=== PATIENT | female | born 1965 | race Caucasian/White ===

== ENCOUNTER 2022-08-16 18:09 | Emergency (ER) | payer BC, SELFPAY ==
--- NOTE | ~2022-08-16 | XR_ITS ---
EXAMINATION: XR chest 2V DATE: 08/16/2022 19:51 INDICATION: Cough TECHNIQUE: PA and lateral views of the chest are obtained. COMPARISON: None available FINDINGS: The lungs are free of acute opacities. No pleural effusion or pneumothorax. The cardiomedia stinal silhouette is normal. There is mild thoracic spondylosis. Bilateral breast implants are noted. IMPRESSION: 1. No acute cardiopulmonary abnormality. Reviewed, dictated and finalized at location F. [place] [employer]
[2022-08-16 18:16] VITALS: BP 157/97; PULSE 107; RESP 16; TEMP 36.4; O2SAT 100
--- NOTE | 2022-08-16 19:46 | ED.DENTAL ---
HPI - Dental/Oral General Chief complaint: Dental/Oral Stated complaint: dental swelling Time Seen by Provider: 08/16/22 19:31 History of Present Illness HPI Narrative: 56-year-old female reports for left upper dental pain for 2 weeks. Patient states she broke that tooth 2 months ago, however just started experiencing pain 2 weeks ago. Reports she is concerned she has an infection or abscess. Patient states she has not been evaluated by dentist because she just switched insurance and her dentist left his practice. She is also complaining of a cough for the past 2 weeks with shortness of breath, congestion and L sinus pressure. Denies fever, body aches, chills, difficulty swallowing, difficulty opening or closing her mouth, chest pain, rash, facial swelling. Related Data Allergies Allergy/AdvReac Type Severity Reaction Status Date / Time codeine Allergy Mild Nausea and Verified 08/16/22 19:00 Vomiting Review of Systems Review of Systems: CONSTITUTIONAL: Denies fever, chills EYES: Denies visual changes, redness, or discharge. ENT: See HPI CARDIOVASCULAR: Denies chest pain, palpitations, or edema. RESPIRATORY: See HPI. GASTROINTESTINAL: Denies abdominal pain, nausea, vomiting, or diarrhea. GENITOURINARY: Denies dysuria or hematuria. SKIN: Denies rash or itching. MUSCULOSKELETAL: Denies back pain, joint pain, or myalgia. NEUROLOGIC: Denies headache, numbness, dizziness, or weakness. PSYCHIATRIC: Denies anxiety or depression. Exam Narrative: GENERAL: Well-appearing, well-nourished, and in no acute distress. HEAD: Normocephalic, atraumatic. EYES: PERRLA and EOMI. ENT: Nares clear, no rhinorrhea or epistaxis. Mucous membranes moist. Oropharynx without tonsillar hypertrophy exudate or other lesions. Tooth #11 fractured with gingival erythema and a small white pustule. #31 fractured. Multiple fillings throughout dentition. No palpable area of fluctuance, induration to buccal mucosa. No erythema or edema to the face. This to the left maxillary and frontal sinuses. No trismus. No necrotizing tissue to the floor of the mouth. NECK: Supple. Left submandibular lymphadenopathy. CHEST: Clear to auscultation. No respiratory distress. No wheezes rales or rhonchi HEART: Regular rate and rhythm. No murmur heard. Normal peripheral pulses. EXTREMITIES: Normal range of motion. No edema. SKIN: Warm, dry, no rash. NEURO: No focal deficits. Alert and oriented x3. PSYCH: Normal mood and affect. Course Course Emergency Course: Offered pain medications to the patient. She declined. Given patient's cough, dyspnea and heart rate of 107 upon initial intake, I discussed my concern for PE with the patient and encouraged to work-up. Patient declined. I discussed the risks of going home without evaluation for PE, including worsening condition, , disability. Patient acknowledges the risk and states she still want to go home and does not want further work-up. I offered to aspirate the patient's gingival abscess, to which she also declined. Vital Signs Vital signs: Vital Signs Temperature 97.6 F 08/16/22 18:16 Pulse Rate 107 H 08/16/22 18:16 Respiratory Rate 16 08/16/22 18:16 Blood Pressure 157/97 H 08/16/22 18:16 Pulse Oximetry 100 08/16/22 18:16 Temperature 97.6 F 08/16/22 18:16 Pulse Rate 107 H 08/16/22 18:16 Respiratory Rate 16 08/16/22 18:16 Blood Pressure 157/97 H 08/16/22 18:16 Pulse Oximetry 100 08/16/22 18:16 MDM - Dental/Oral MDM Narrative Medical decision making narrative: 56-year-old female reports for left upper dental pain overlying tooth #11 for 2 weeks. She fractured her tooth 2 months ago. Exam reveals erythematous and edematous gingiva with a small white pustule above tooth #11. No facial cellulitis, focal induration or fluctuation, trismus, concern for Ludewig's angina. Patient remains afebrile throughout ED visit. Heart rate was elevated at 107, patient also complained of cou
[2022-08-16] MEDS: BENZONATATE 100 MG CAPSULE 200 MG PO (20:05)
[2022-08-16 20:48] LABS: Influenza A QL RT-PCR Negative (Negative); Influenza B QL RT-PCR Negative (Negative); SARS-CoV-2 RNA PCR Negative
== END 2022-08-16 20:39 | disposition left against medical advice (07) ==
PROVIDERS: Emergency Provider Physician Assistant
DX: K04.7 Periapical abscess without sinus (principal); K03.81 Cracked tooth; R05.9 Cough, unspecified; Z20.822 Contact with and (suspected) exposure to COVID-19
CPT/HCPCS: 71046; 87636; 99284; A9270

== ENCOUNTER 2023-02-23 13:44 | Emergency (ER) | payer BC, SELFPAY ==
[2023-02-23 13:46] VITALS: BP 164/90; PULSE 87; RESP 20; TEMP 36.7; O2SAT 100
--- NOTE | 2023-02-23 14:38 | PC.NURSE ---
Sitter for room 15 - states she saw room 14 walk out the Ambulance doors and get into her car.
== END 2023-02-23 14:39 | disposition left against medical advice (07) ==
DX: R06.02 Shortness of breath (principal)
CPT/HCPCS: 99199

== ENCOUNTER 2024-10-15 09:34 | Emergency (ER) | payer OTHER, SELFPAY ==
[2024-10-15 09:48] VITALS: BP 151/92; PULSE 98; RESP 18; TEMP 36.6; O2SAT 100
--- NOTE | 2024-10-15 09:58 | ED.DENTAL ---
HPI - Dental/Oral General Chief complaint: Dental/Oral Stated complaint: Dental Pain/Ear Irritation Source: patient Mode of arrival: ambulatory Limitations: no limitations History of Present Illness HPI Narrative: Patient presents to [facility] for complaints of tooth pain to upper right. She recently had two teeth removed and is waiting for an appointment to have another tooth extracted. She finished a round of penicillin last week for her two teeth that were removed. Denies bitter taste in mouth, fever, chills. Related Data Allergies Allergy/AdvReac Type Severity Reaction Status Date / Time codeine Allergy Mild Nausea and Verified 10/15/24 09:37 Vomiting Review of Systems Review of Systems: CONSTITUTIONAL: Denies body aches, fever, chills, or sweats. EYES: Denies visual changes, redness, or discharge. ENT: Denies rhinorrhea, congestion, sore throat, or otalgia. Reports dental pain to #7. CARDIOVASCULAR: Denies chest pain, palpitations, or edema. RESPIRATORY: Denies cough or dyspnea. SKIN: Denies rash, itching, or wounds. NEUROLOGIC: Denies headache, numbness, tingling, or weakness. PSYCH: Denies depression or anxiety. All systems reviewed & are unremarkable except as noted in HPI and below PMFSH Past Medical History Medical History (Updated 10/15/24 @ 10:54 by Nayely Hernandez APRN) Hyperlipidemia H/O trichomoniasis Diabetes Depression Hypertension Eczema Psoriasis Anxiety ADHD (attention deficit hyperactivity disorder) Neck injury Broken collarbone (~1970) Fractured nose Arthritis Surgical History Surgical History (Updated 08/06/23 @ 13:14 by ANGELIQUE Decker) S/P nasal surgery (~1979) nose surgery broken x 3 H/O breast implant (~1993) H/O colonoscopy (03/29/14) polyp / Benign History of colposcopy (06/29/15) benign Family History Family History (Updated 08/06/23 @ 13:17 by ANGELIQUE Decker) Father Hypertension Bone cancer Mother Carcinoma of colon Muscular dystrophy Grandparent Carcinoma of colon maternal grandmother Sibling Brain cancer sister Malignant lymphoma sister Other Breast cancer maternal aunt Comments At time of signature, I have reviewed and agree with nursing past medical, surgical, social and family history unless otherwise noted. Please see nursing chart for further information. There is no relevant family history pertinent to the presenting complaint. Exam Narrative: GENERAL: Well-appearing, well-nourished, and in no acute distress. HEAD: Normocephalic, atraumatic. EYES: EOMI. No redness or drainage. Conjunctivae normal. ENT: Mucous membranes pink and moist. Nares clear. No rhinorrhea. TMs not visible due to impaction of wax. Throat normal. Uvula midline. Dental pain location of #7. no dysphagia, odynophagia, dysphonia or dyspnea. The soft palate has edema. NECK: Normal AROM. Supple. No lymphadenopathy. No induration below mandible, no neck pain. CHEST: No respiratory distress. Clear to auscultation. HEART: Regular rate and rhythm. No murmur appreciated. Normal peripheral pulses. MUSCULOSKELETAL: No bony tenderness. NEURO: No focal deficits. Alert and oriented x3. Gait steady. PSYCH: Normal affect. No signs of depression or anxiety. Course Course Level of Care: Express Care Visit Vital Signs Vital signs: Vital Signs Temperature 98 F 10/15/24 09:48 Pulse Rate 98 10/15/24 09:48 Respiratory Rate 18 10/15/24 09:48 Blood Pressure 151/92 H 10/15/24 09:48 Pulse Oximetry 100 10/15/24 09:48 Oxygen Delivery Room Air 10/15/24 09:48 Temperature 98 F 10/15/24 09:48 Pulse Rate 98 10/15/24 09:48 Respiratory Rate 18 10/15/24 09:48 Blood Pressure 151/92 H 10/15/24 09:48 Pulse Oximetry 100 10/15/24 09:48 Oxygen Delivery Room Air 10/15/24 09:48 Reviewed. MDM - Dental/Oral MDM Narrative Medical decision making narrative: Patient's pain and complaint coupled physical exam findings are consistent with dentalgia. Advised supportive measures and signs/symptoms to go to the ER. Pt is appropriate for outpatient treatment and f/u with Dentist. Differential Diagnosis Differential diagnosis: Likely gingival abscess, dental caries, toothache and dental abscess Critical Care Time Critical Care Time Critical Care Time: No Discharge Plan Discharge Clinical Impression: Dental abscess Cerumen impaction Qualifiers: Laterality: bilateral Qualified Code(s): H61.23 - Impacted cerumen, bilateral Patient Disposition: Home Condition: Stable Instructions: Antibiotic Form, Dental Abscess (ED) Additional Instructions: Take antibiotic as directed May apply heat or ice to the face Gentle brushing and flossing. Rinse mouth with warm salt water at least 2 times a day. Alternate Tylenol and ibuprofen as needed for pain Follow-up with the dentist as soon as possible-- keep your appoitment! Patient Language: Guamanian Prescriptions: New amoxicillin-pot clavulanate 875-125 mg tablet 1 tablet PO Q12H 10 Days Qty: 20 0RF Follow-up/Referrals: PHYSICIAN,SERVICES MANAGER [Primary Care Provider] - Time of Disposition: 09:59
== END 2024-10-15 10:05 | disposition home or self-care (01) ==
DX: K04.7 Periapical abscess without sinus (principal); H61.23 Impacted cerumen, bilateral; E78.5 Hyperlipidemia, unspecified; E11.9 Type 2 diabetes mellitus without complications; I10 Essential (primary) hypertension; M19.90 Unspecified osteoarthritis, unspecified site; L40.9 Psoriasis, unspecified
CPT/HCPCS: 99213; G0463